=== PATIENT | male | born 1935 | race Caucasian/White ===

== ENCOUNTER 2017-06-10 06:49 | Emergency (ER) | payer MEDICARE, OTHER ==
[~2017-06-10] VITALS: Ht 177.8 cm; Wt 77.0 kg
[~2017-06-10 06:49] MED LIST: ADLT ASA LOW81 MG PO; ADVAIR DISK1 IN; ADVAIR DISKU IN; ADVAIR DISKU PO; BABY ASPIRIN81 MG PO; BAYER ASPIRIN E81 MG PO; CENTRUM OR; CENTRUM SILVER PO; CENTRUM SILVER1 TAB PO; CIPRO750 MG PO; DILAUDID2 MG PO; EYE VITAMINS PO; FERROUS SULF324 MG PO; FERROUS SULFATE PO; FISH OIL1000 MG PO; FLUARIX QUADRIV1 INJ IM; FLUZONE SPLT1 M1 IM; FLUZONE1 M1 IM; KEFLEX500 M1 PO; KEFLEX500 MG PO; LOVASTATIN20 M1 OR; LOVASTATIN20 M1 PO; PAROXETINE20 M1 PO; PAROXETINE20 MG PO; PAROXETINE30 MG PO; PNEUMOVAX 23 IM; PREVNAR 13; PREVNAR 13 IM; PRILOSEC20 MG PO; PROVENTIL HFA IN; TAM75CAP PO; [UNRECOGNIZED DRUG - OTHER]; [UNRECOGNIZED DRUG - OTHER] PO
[2017-06-10 06:53] VITALS: BP 144/78
[2017-06-10 07:47] LABS: HEMATOCRIT 37.9 % (39.0-50.0); IMMATURE GRANULOCYTES 0.3 % (0.0-1.0); MEAN CELL VOLUME 99.5 fL CALC (80.0-100.0); MEAN CORPUSCULAR HGB 34.1 pG CALC (26.0-32.0); MEAN CORPUSCULAR HGB CONC 34.3 g/L CALC (32.0-36.0); NEUT# 3.76 thou/uL (1.82-7.42); RED BLOOD COUNT 3.81 mill/uL (4.70-6.10); RED CELL DISTRI WIDTH 13.2 % (11.5-15.5)
[2017-06-10 07:58] LABS: ANION GAP 16 (6-22 (CALC)); BUN 17 mg/dL (8-23); BUN/CREATININE RATIO 19 (12-20 (CALC)); CARBON DIOXIDE 24 mmol/l (22-30); CHLORIDE 110 mmol/l (95-108); CREATININE 0.9 mg/dL (0.7-1.3); GFR > 60 ML/MIN (>=60 (CALC)); GFR FOR AFR.AMER. > 60 ML/MIN (>=60 (CALC)); GLUCOSE 106 mg/dL (82-115); POTASSIUM 4.3 mmol/l (3.5-5.1); SODIUM 145 mmol/l (137-146)
== END 2017-06-10 10:23 | disposition short-term general hospital (02) ==
LOC: ED 06:49
PROVIDERS: Family Medicine
DX: T18.128A Food in esophagus causing other injury, initial encounter (principal); K22.8 Other specified diseases of esophagus; J45.909 Unspecified asthma, uncomplicated; K44.9 Diaphragmatic hernia without obstruction or gangrene; X58.XXXA Exposure to other specified factors, initial encounter; Y93.89 Activity, other specified
CPT/HCPCS: J1610

== ENCOUNTER 2017-11-20 15:20 | Inpatient (IN) | payer MEDICARE, OTHER ==
[2017-11-20] VITALS (13 sets, daily range): BP systolic 108–131; BP diastolic 58–76
[~2017-11-20] VITALS: Ht 177.8 cm; Wt 73.0 kg
[~2017-11-20 15:20] MED LIST changes: +PAROXETINE10 MG PO; -PAROXETINE20 M1 PO
--- NOTE | 2017-11-20 15:30 | NUR ---
male pt received to med surg via wc accompanied by volunteer in stable condition; ambulatory to scale then bed with steady gait; settled in bed; call light within reach; will continue to monitor
--- NOTE | 2017-11-20 15:55 | NUR ---
male pt (direct admission) resting in bed; no distress noted; pt offers no complaints; admission assessment completed at this time; pt alert and oriented; denies pain; no n/v noted; c/c "sent by Dr Mauricio"; pt admits to weakness and poor apetite since whipple surgery on 09/11/17; resp even and unlabored; lung clear bilat; skin color wnl; pt pale/sclera pale; hr reg; strong pulses; trace edema noted to ble; tele monitor to be placed; abd soft with bs present; no bm noted per television writer; pt aware stools are needed; pt admits to voiding without complication; no urine to inspect at this time; #20 started x1 attempt to rac; flushed and patent; no redness or edema noted at site; dressing cdi to right abd; no drainage noted; plan of care/ meds explained/ tranfusion explained; pt oriented to bed and call light system; will continue to monitor
[2017-11-20 16:13] LABS: HEMATOCRIT 23.4 % (39.0-50.0); HEMOGLOBIN 7.1 g/dl (14.0-18.0); IMMATURE GRANULOCYTES 0.7 % (0.0-1.0); MEAN CELL VOLUME 95.9 fL CALC (80.0-100.0); MEAN CORPUSCULAR HGB 29.1 pG CALC (26.0-32.0); MEAN CORPUSCULAR HGB CONC 30.3 g/L CALC (32.0-36.0); NEUT# 7.03 thou/uL (1.82-7.42); RED BLOOD COUNT 2.44 mill/uL (4.70-6.10); RED CELL DISTRI WIDTH 16.4 % (11.5-15.5)
[2017-11-20 16:38] LABS: ANION GAP 16 (6-22 (CALC)); BUN 14 mg/dL (8-23); BUN/CREATININE RATIO 22 (12-20 (CALC)); CARBON DIOXIDE 24 mmol/l (22-30); CHLORIDE 101 mmol/l (95-108); CREATININE 0.6 mg/dL (0.7-1.3); GFR > 60 ML/MIN (>=60 (CALC)); GFR FOR AFR.AMER. > 60 ML/MIN (>=60 (CALC)); POTASSIUM 4.1 mmol/l (3.5-5.1); SODIUM 136 mmol/l (137-146)
--- NOTE | 2017-11-20 19:00 | NUR ---
RECEIVED CHANGE OF SHIFT REPORT FROM William COLBY RN. PATIENT ALERT AND ORIENTED AND LYING IN BED. IVF INFUSING WITHOUT DIFFICULTY. NO VOICED COMPALINT. NO APPARENT ACUTE DISTRESS NOTED. WILL CONTINUE TO MONITOR.
--- NOTE | 2017-11-20 19:21 | NUR ---
1st unit of prbc's verified at bedside as per protocol; pt explained possible s/s or reactio and to notify staff immed. blood infusing without complication; vss; will continue to monitor
[2017-11-21] VITALS (8 sets, daily range): BP systolic 119–147; BP diastolic 65–83
--- NOTE | 2017-11-21 | NUR ---
PATIENT AWAKE AND LYING IN BED. PRBC INFUSING WOTHOUT DIFFICULTY. NO VOICED COMPLAINT. NO APPARENT ACUTE DISTRESS NOTED. WILL CONTINUE TO MONITOR.
[2017-11-21 03:01] LABS: URINE BILIRUBIN - DIPSTICK NEGATIVE (NEGATIVE); URINE BLOOD DIPSTICK NEGATIVE (NEGATIVE); URINE CLARITY CLEAR; URINE COLOR YELLOW; URINE GLUCOSE - DIPSTICK NEGATIVE (NEGATIVE); URINE KETONE NEGATIVE (NEGATIVE); URINE LEUK ESTERASE NEGATIVE (NEGATIVE); URINE NITRITE - DIPSTICK NEGATIVE (Negative); URINE PH 6.5 (4.5-8.0); URINE PROTEIN - DIPSTICK NEGATIVE (NEG-TRACE); URINE UROBILINOGEN - DIPSTICK 0.2 E.U./dL (0.2)
--- NOTE | 2017-11-21 04:00 | NUR ---
PATIENT RESTING QUIETLY. NO APPARENT ACUTE CHANGES NOTED IN PATIENT'S CONDITION.
[2017-11-21 05:04] LABS: IMMATURE GRANULOCYTES 0.7 % (0.0-1.0); MEAN CELL VOLUME 90.9 fL CALC (80.0-100.0); MEAN CORPUSCULAR HGB 28.5 pG CALC (26.0-32.0); MEAN CORPUSCULAR HGB CONC 31.4 g/L CALC (32.0-36.0); NEUT# 6.33 thou/uL (1.82-7.42); RED BLOOD COUNT 3.4 mill/uL (4.70-6.10); RED CELL DISTRI WIDTH 17.7 % (11.5-15.5)
[2017-11-21 05:16] LABS: ALBUMIN 2.6 g/dL (3.2-5.0); ALKALINE PHOSPHATASE 97 u/l (38-126); ANION GAP 14 (6-22 (CALC)); BILIRUBIN, TOTAL 1.1 mg/dL (0.0-1.4); BUN 12 mg/dL (8-23); BUN/CREATININE RATIO 18 (12-20 (CALC)); CARBON DIOXIDE 28 mmol/l (22-30); CHLORIDE 102 mmol/l (95-108); CREATININE 0.7 mg/dL (0.7-1.3); GFR > 60 ML/MIN (>=60 (CALC)); GFR FOR AFR.AMER. > 60 ML/MIN (>=60 (CALC)); POTASSIUM 3.9 mmol/l (3.5-5.1); SGOT/AST 30 u/l (19-48); SGPT/ALT 46 u/l (11-66); SODIUM 139 mmol/l (137-146); TOTAL PROTEIN 5.8 g/dL (6.3-8.2)
[2017-11-21 05:34] LABS: HEMATOCRIT 30.9 % (39.0-50.0); HEMOGLOBIN 9.7 g/dl (14.0-18.0)
--- NOTE | 2017-11-21 07:08 | NUR ---
REPORT RECEIVED FROM NEHAL REA. PT SUPINE IN BED. DENIES PAIN. REPORTS MOST IMPORTANT COMPLAINTS OF LOSS OF APPETITE AND APATHY. PLAN OF CARE DISCUSSED. REPORTING OF CONCERNS ENCOURAGED. CALL LIGHT REVIEWED AND IN REACH. FALL PRECAUTIONS REINFORCED. PT STATES UNDERSTANDING.
--- NOTE | 2017-11-21 08:30 | NUR ---
DR. RODRIGUEZ IN TO SEE PT AT THIS TIME. PLAN OF CARE UPDATED. PT REPORTS "FEELING MUCH BETTER."
[2017-11-21] MEDS ORDERED: OMEPRAZOLE10 MG PO (10:25)
[2017-11-21] MEDS ORDERED: ADVAIR DISKU IN (10:28)
--- NOTE | 2017-11-21 12:07 | NUR ---
Medication reconciliation completed. All home medications reviewed and verified with patient.
--- NOTE | 2017-11-21 12:14 | NUR ---
PT SITTING UPRIGHT IN BED. AT BEDSIDE. DENIES PAIN/NAUSEA. REPORTS NOT FEELING HUNGRY. INTAKE ENCOURAGED.
--- NOTE | 2017-11-21 16:06 | NUR ---
HOME HEALTH NURSE IN TO CHANGE DRESSING TO PTS RUQ ABD. WOUND CLOSED. BANDAID APPLIED PER NEHAL LYONS.
[2017-11-21 16:23] LABS: HEMATOCRIT 29.5 % (39.0-50.0); HEMOGLOBIN 9.5 g/dl (14.0-18.0); IMMATURE GRANULOCYTES 0.5 % (0.0-1.0); MEAN CELL VOLUME 90.5 fL CALC (80.0-100.0); MEAN CORPUSCULAR HGB 29.1 pG CALC (26.0-32.0); MEAN CORPUSCULAR HGB CONC 32.2 g/L CALC (32.0-36.0); NEUT# 7.48 thou/uL (1.82-7.42); RED BLOOD COUNT 3.26 mill/uL (4.70-6.10)
[2017-11-21 16:51] LABS: ANION GAP 14 (6-22 (CALC)); BUN 13 mg/dL (8-23); BUN/CREATININE RATIO 20 (12-20 (CALC)); CARBON DIOXIDE 26 mmol/l (22-30); CHLORIDE 100 mmol/l (95-108); CREATININE 0.6 mg/dL (0.7-1.3); GFR > 60 ML/MIN (>=60 (CALC)); GFR FOR AFR.AMER. > 60 ML/MIN (>=60 (CALC)); POTASSIUM 3.6 mmol/l (3.5-5.1); SODIUM 136 mmol/l (137-146)
--- NOTE | 2017-11-21 20:00 | NUR ---
PT RESTING IN BED VISITING WITH VISITOR IN ROOM. PT IS ALERT AND ORIENTED X3. PERRLA. RESP ARE EVEN AND UNLABORED. NO DISTRESS NOTED. LUNGS ARE CLEAR. TELE IN PLACE. HR REGULAR. PULSES PALPABLE THROUGHOUT. NO EDEMA NOTED. BS ACTIVE. #20 RAC SALINE LOCKED. NO REDNESS OR EDEMA NOTED. CALL LIGHT IN REACH. WILL CONTINUE TO MONITOR
--- NOTE | 2017-11-21 23:52 | NUR ---
PT RESTING IN BED WITH EYES CLOSED. RESP ARE EVEN AND UNLABORED. NO DISTRESS NOTED. CALL LIGHT IN REACH. WILL CONTINUE TO MONTIOR
[2017-11-22 00:10] VITALS: BP 118/71
--- NOTE | 2017-11-22 04:00 | NUR ---
MEDICATED PT FOR A TEMP OF 100.6. RESP ARE EVEN AND UNLABORED. NO DISTRESS NOTED CALL LIGHT IN REACH. WILL CONTINUE TO MORIAH
[2017-11-22 04:32] VITALS: BP 145/72
--- NOTE | 2017-11-22 07:27 | NUR ---
SHIFT CHANGE REPORT FROM SAMRA, PT AWAKE ALERT AND ORIENTED, TOOK OFF TELE MONITOR AND GETTING DRESSED STATING HE IS GOING HOME TODAY WHEN DR RODRIGUEZ GETS HERE, ADVISED TO KEEP ON MONITOR TILL THEN BUT REFUSES STATING "THAT THING" IS TOO UNCOMFORTABLE. WILL CONTINUE TO ARELIS, CALL MCCAULEY IN REACH.
[2017-11-22] MEDS ORDERED: MEGACE20 MG PO (08:38)
--- NOTE | 2017-11-22 10:26 | NUR ---
Discharge instructions given. Patient verbalizes understanding of same. Discharged in good condition via Wheelchair to Home with spouse. All belongings sent with pt.
== END 2017-11-22 10:27 | disposition home or self-care (01) | DRG 812 ==
LOC: MS2 15:20
PROVIDERS: ADMIT Internal Medicine Geriatric Medicine; ATTEND Internal Medicine Geriatric Medicine
PROC: 30233N1 Transfusion of Nonautologous Red Blood Cells into Peripheral Vein, Percutaneous Approach (ICD-10-PCS; principal; 2017-11-20)
PROC: 30233N1 Transfusion of Nonautologous Red Blood Cells into Peripheral Vein, Percutaneous Approach (ICD-10-PCS; 2017-11-20)
DX: D64.9 Anemia, unspecified (principal); C25.1 Malignant neoplasm of body of pancreas; J44.9 Chronic obstructive pulmonary disease, unspecified; I12.9 Hypertensive chronic kidney disease with stage 1 through stage 4 chronic kidney disease, or unspecified chronic kidney disease; N18.9 Chronic kidney disease, unspecified; K21.9 Gastro-esophageal reflux disease without esophagitis; Z98.890 Other specified postprocedural states; Z85.46 Personal history of malignant neoplasm of prostate
CPT/HCPCS: G0378; G0379; P9016

== ENCOUNTER 2020-06-13 07:32 | Emergency (ER) | payer MEDICARE, OTHER ==
[~2020-06-13] VITALS: Ht 177.8 cm; Wt 68.0 kg
[~2020-06-13 07:32] MED LIST changes: +MEGACE20 MG PO; +OMEPRAZOLE10 MG PO
[2020-06-13 08:13] LABS: HEMATOCRIT 33.1 % (39.0-50.0); HEMOGLOBIN 10.6 g/dl (14.0-18.0); IMMATURE GRANULOCYTES 0.6 % (0.0-5.0); MEAN CELL VOLUME 105.1 fL CALC (80.0-100.0); MEAN CORPUSCULAR HGB 33.7 pG CALC (26.0-32.0); NEUT# 4.23 thou/uL (1.82-7.42); RED BLOOD COUNT 3.15 mill/uL (4.70-6.10); RED CELL DISTRI WIDTH 12.4 % (11.5-15.5)
[2020-06-13 08:28] LABS: ALKALINE PHOSPHATASE 107 u/l (38-126); ANION GAP 11 (6-22 (CALC)); BILIRUBIN, TOTAL 0.5 mg/dL (0.0-1.4); BUN 16 mg/dL (8-23); BUN/CREATININE RATIO 20 (12-20 (CALC)); CARBON DIOXIDE 24 mmol/l (22-30); CHLORIDE 105 mmol/l (95-108); CREATININE 0.8 mg/dL (0.7-1.3); GFR > 60 ML/MIN (>=60 (CALC)); GFR FOR AFR.AMER. > 60 ML/MIN (>=60 (CALC)); SGOT/AST 33 u/l (19-48); SODIUM 136 mmol/l (137-146)
[2020-06-13 08:33] LABS: D-DIMER 1.42 mg/L (0.19-0.60)
[2020-06-13 08:53] LABS: ACT PARTIAL THROMBO TIME 27.2 SECONDS (20.0-32.5); PROTHROMBIN TIME 10.1 SECONDS (9.0-12.5)
[2020-06-13 10:06] LABS: URINE BILIRUBIN - DIPSTICK NEGATIVE (NEGATIVE); URINE BLOOD DIPSTICK SMALL (NEGATIVE); URINE COLOR YELLOW; URINE GLUCOSE - DIPSTICK NEGATIVE (NEGATIVE); URINE KETONE NEGATIVE (NEGATIVE); URINE LEUK ESTERASE TRACE (NEGATIVE); URINE NITRITE - DIPSTICK NEGATIVE (Negative); URINE PH 5.5 (4.5-8.0); URINE PROTEIN - DIPSTICK NEGATIVE (NEG-TRACE); URINE SPECIFIC GRAVITY 1.015; URINE UROBILINOGEN - DIPSTICK 0.2 E.U./dL (0.2)
[2020-06-13 10:09] LABS: URINE RBC 0-2 RBC/hpf (0-5); URINE WBC 0-2 WBC/hpf (0-5)
[2020-06-13] MEDS ORDERED: LOMOTIL2.5 MG PO (10:53)
[2020-06-13 11:21] VITALS: BP 164/75
== END 2020-06-13 11:21 | disposition home or self-care (01) ==
LOC: ED 07:32
DX: B34.9 Viral infection, unspecified (principal); I10 Essential (primary) hypertension; J45.909 Unspecified asthma, uncomplicated; Z95.0 Presence of cardiac pacemaker; Z20.828 Contact with and (suspected) exposure to other viral communicable diseases
CPT/HCPCS: Q9967

== ENCOUNTER 2022-06-20 11:00 | Emergency (ER) | payer MEDICARE, OTHER ==
[2022-06-20] VITALS (16 sets, daily range): BP systolic 117–162; BP diastolic 63–81
[~2022-06-20] VITALS: Ht 177.8 cm; Wt 86.1 kg
[~2022-06-20 11:00] MED LIST changes: +LOMOTIL2.5 MG PO
[2022-06-20 11:44] LABS: HEMATOCRIT 33.9 % (39.0-50.0); HEMOGLOBIN 11.1 g/dl (14.0-18.0); IMMATURE GRANULOCYTES 0.9 % (0.0-5.0); MEAN CELL VOLUME 101.2 fL CALC (80.0-100.0); MEAN CORPUSCULAR HGB 33.1 pG CALC (26.0-32.0); MEAN CORPUSCULAR HGB CONC 32.7 g/dL CAL (32.0-36.0); NEUT# 5.99 thou/uL (1.82-7.42); RED BLOOD COUNT 3.35 mill/uL (4.70-6.10); RED CELL DISTRI WIDTH 12.3 % (11.5-15.5)
[2022-06-20 11:48] LABS: CPK 23 u/l (52-200)
[2022-06-20 11:49] LABS: ALBUMIN 4.1 g/dL (3.2-5.0); ALKALINE PHOSPHATASE 115 u/l (38-126); BILIRUBIN, TOTAL 0.4 mg/dL (0.0-1.4); BUN 17 mg/dL (8-23); BUN/CREATININE RATIO 22 (12-20 (CALC)); CARBON DIOXIDE 24 mmol/l (22-30); CHLORIDE 98 mmol/l (95-108); CREATININE 0.8 mg/dL (0.7-1.3); GFR FOR AFR.AMER. > 60 ML/MIN (>=60 (CALC)); GFR OTHER RACES > 60 ML/MIN (>=60 (CALC)); LIPASE 21 u/l (23-300); MAGNESIUM 1.9 mg/dL (1.6-2.3); POTASSIUM 4.2 mmol/l (3.5-5.1); SGOT/AST 44 u/l (19-48); TOTAL PROTEIN 7.4 g/dL (6.3-8.2)
[2022-06-20 11:50] LABS: ANION GAP 14 (6-22 (CALC)); SODIUM 132 mmol/l (137-146)
[2022-06-20 13:45] LABS: URINE BILIRUBIN - DIPSTICK NEGATIVE (NEGATIVE); URINE BLOOD DIPSTICK SMALL (NEGATIVE); URINE COLOR YELLOW; URINE GLUCOSE - DIPSTICK >=1000 mg/dL (NEGATIVE); URINE KETONE TRACE mg/dL (NEGATIVE); URINE LEUK ESTERASE TRACE (NEGATIVE); URINE PROTEIN - DIPSTICK TRACE mg/dL (NEG-TRACE)
[2022-06-20 13:54] LABS: URINE NITRITE - DIPSTICK NEGATIVE (Negative)
[2022-06-20 13:55] LABS: URINE BACTERIA MODERATE hpf; URINE EPITHELIAL CELLS FEW EPI/hpf (0-FEW)
[2022-06-20] MEDS ORDERED: ZPAK PO (15:40)
== END 2022-06-20 15:54 | disposition home or self-care (01) ==
LOC: ED 11:00
PROVIDERS: Internal Medicine
DX: J18.9 Pneumonia, unspecified organism (principal); Z95.0 Presence of cardiac pacemaker; Z20.822 Contact with and (suspected) exposure to COVID-19